=== PATIENT | male | born 1960 | race Caucasian/White ===

== ENCOUNTER 2016-09-18 14:24 | Observation (INO) ==
[2016-09-18 15:18] LABS: Basophils % 0.1 %; Eosinophils # 0.1 K/mcL (0.0-0.6); Eosinophils % 0.4 %; Hematocrit 38.6 % (37.5-50.1); Hemoglobin 13.1 g/dL (12.9-16.9); Immature Granulocytes % 0.4 % (0-4); Lymphocytes # 1.7 K/mcL (0.6-4.6); Lymphocytes % 11.8 %; Mean Corpuscular HGB Conc 33.9 g/dL (31.6-35.5); Mean Corpuscular Hemoglobin 31.5 pg (28.0-33.3); Mean Corpuscular Volume 92.8 fL (83.0-100.0); Mean Platelet Volume 8.9 fL (9.4-12.4); Monocytes % 7.1 %; Neutrophils # 11.4 K/mcL (1.6-8.9); Platelet Count 151 K/mcL (140-400); Red Blood Count 4.16 M/mcL (4.19-5.50); Red Cell Distribution Width 12.7 % (11.5-14.5); Segmented Neutrophils % 80.2 %
--- NOTE | 2016-09-18 15:31 | Emergency Department Note ---
Disposition Clinical Impression: Hypoxia, Dyspnea Pneumonia Qualifiers: Pneumonia type: due to unspecified organism Laterality: right Lung location: unspecified part of lung Qualified Code(s): J18.9 - Pneumonia, unspecified organism Disposition: Admitted As Inpatient Condition: Fair Referrals: NONE,PCP [Non-Partnered Physician] - Forms: Work/School Release, ED Satisfaction Letter Time of Disposition: 19:46 Dizziness HPI - General Chief Complaint: ED General Medical Stated Complaint: Dizzy, Out of BP meds, Aching all over Time Seen by Provider: 09/18/16 14:46 Source: patient, EMS Limitations: no limitations - History of Present Illness HPI Narrative: ]]] Mr. Mckoy is a 55-year-old male with a past medical history of hypertension and hepatitis C. He has a remote IV drug use history. Patient presents to the ED because he started feeling dizzy about 2 hours before his presentation. He says he was at the [employer] store and he started to see stars. Upon further questioning, patient states that he has pain in his back that radiates to his right shoulder. He says he has been feeling short of breath for about 2-3 days. Patient states she has been nauseated since yesterday. He has had no vomiting or diarrhea constipation or trouble urinating. He has noticed no blood in his blood urine. Patient denies any cardiac history including coronary artery disease or congestive heart failure. Timing: gradual onset Description: lightheadedness Severity: moderate Associated symptoms: Reports: shortness of breath, nausea. Denies: diaphoresis , fever, palpitations - Related Data Home Medications Medication Instructions Recorded Confirmed Albuterol Sulfate [Ventolin Hfa] 2 puff IH Q4H PRN 09/18/16 09/18/16 Cholecalciferol (D-3) [Vitamin D] 1,000 unit PO DAILY 09/18/16 09/18/16 Fexofenadine HCl 180 mg PO DAILY 09/18/16 09/18/16 Gabapentin [Neurontin] 800 mg PO QID 09/18/16 09/18/16 Lisinopril [Zestril] 10 mg PO DAILY 09/18/16 09/18/16 Ranitidine HCl [Acid Cork Insulator Helper] 150 mg PO BID 09/18/16 09/18/16 Previous Rx's Medication Instructions Recorded Ibuprofen [Motrin] 800 mg PO Q8HR PRN #40 tablet 06/04/16 Allergies Allergy/AdvReac Type Severity Reaction Status Date / Time aspirin [ASA] Allergy Rash Verified 12/29/14 00:10 All systems ED: reviewed and negative except as stated. Constitutional: Reports: as per HPI. Denies: fever Cardiovascular: Reports: chest pain. Denies: palpitations, dyspnea on exertion , edema, syncope Respiratory: Reports: dyspnea. Denies: cough, hemoptysis, sputum production Gastrointestinal: Reports: nausea. Denies: abdominal pain, vomiting, diarrhea, constipation Genitourinary: Denies: urgency, dysuria Past Medical History - Past Medical History Attestation: Yes The following information was validated with the patient. Source: patient Medical history: Reports: hypertension Surgical history: Reports: no surgical history, orthopedic, other Psychiatric history: Reports: no psych history - Social History Smoking Status: Current every day smoker Smokeless Tobacco Status: No Alcohol use: Reports: none Drug use: Reports: marijuana Physical Exam - General Limitations: no limitations General appearance: alert, in no apparent distress - Eye Eye exam: Present: normal appearance, PERRL - ENT ENT exam: normal exam (Patient has poor dentition. He is unkept.) - Neck Neck exam: Present: normal inspection - Chest Chest inspection: Present: normal inspection - Respiratory Respiratory exam: Present: normal lung sounds bilaterally. Absent: respiratory distress, wheezes, stridor - Cardiovascular Cardiovascular exam: Present: regular rate, normal rhythm. Absent: systolic murmur, diastolic murmur, rubs, gallop - Abdominal Exam Abdominal exam: Present: soft, Non-Tender - Extremities Exam Extremities exam: Present: normal inspection. Absent: pedal edema - Neurological Exam Neurological exam: Present: alert, oriented X3, normal gait. Absent: motor sensory deficit - Psychiatric Psychiatric exam: Present: normal affect (Patient appears homeless and unclean.) - Skin Skin exam: Present: warm, dry Course Course Narrative: 55-year-old male with past medical history of hypertension hepatitis C and homelessness presents to the ED with 2 hour history of feeling dizzy. Patient says she has been having back pain that radiates to his right shoulder for the past couple days. He also says he has been feeling short of breath for the past 4 days. Patient has no known coronary artery disease or congestive heart failure. Because of patient's shortness of breath and symptoms, we will order a chest pain workup. - Reevaluation(s) Reevaluation #1: Patient patient's ECG is normal. He has an elevated white blood cell count with a left shift. Chest x-ray shows some focal nodularity recommended CT scan. Reevaluation #2: CT scans show some multifocal pneumonia of his right lobe and also a splenic aneurysm. CT is recommending further imaging. Patient has a white blood cell count 14.2. Will admit to medicine for treatment of PNA. Vital Signs Temperature 98.1 F 09/18/16 14:25 Pulse Rate 95 09/18/16 14:25 Respiratory Rate 14 09/18/16 14:25 Blood Pressure 125/85 09/18/16 14:25 O2 Sat by Pulse Oximetry 93 09/18/16 14:25 Temperature 98.1 F 09/18/16 14:25 Pulse Rate 85 09/18/16 15:53 Respiratory Rate 14 09/18/16 15:53 Blood Pressure 122/83 09/18/16 15:53 O2 Sat by Pulse Oximetry 94 09/18/16 15:53 Oxygen Delivery Oxygen Delivery Room Air Dizziness - Medical Records Medical records reviewed: Yes I reviewed the patient's medical records. - Lab Data Lab results reviewed: Yes I reviewed the patient's lab results. Result diagrams: 09/18/16 15:07 09/18/16 15:09 Lab Results 09/18/16 09/18/16 09/18/16 Range/Units 15:07 15:09 15:09 WBC 14.2 H (4.3-11.1) K/mcL RBC 4.16 L (4.19-5.50) M/mcL Hgb 13.1 (12.9-16.9) g/dL Hct 38.6 (37.5-50.1) % MCV 92.8 (83.0-100.0) fL MCH 31.5 (28.0-33.3) pg MCHC 33.9 (31.6-35.5) g/dL RDW 12.7 (11.5-14.5) % Plt Count 151 (140-400) K/mcL MPV 8.9 L (9.4-12.4) fL Immature Gran % 0.4 (0-4) % Seg Neutrophils % 80.2 % Lymphocytes % 11.8 % Monocytes % 7.1 % Eosinophils % 0.4 % Basophils % 0.1 % Neutrophils # 11.4 H (1.6-8.9) K/mcL Lymphocytes # 1.7 (0.6-4.6) K/mcL Monocytes # 1.0 (0.0-1.3) K/mcL Eosinophils # 0.1 (0.0-0.6) K/mcL Basophils # 0.0 (0.0-0.2) K/mcL Sodium 137 (136-145) mEq/L Potassium 4.4 (3.5-4.5) mEq/L Chloride 102 (98-109) mEq/L Carbon Dioxide 28 (19-29) mEq/L BUN 19 (8-26) mg/dL Creatinine 0.99 (0.72-1.25) mg/dL Est GFR ( Amer) > 60 (> 60) Est GFR (Non-Af Amer) > 60 (> 60) BUN/Creatinine Ratio 19 (6-26) Glucose 113 H (70-99) mg/dL Calculated Osmolality 287 (280-300) Calcium 9.2 (8.6-10.8) mg/dL Total Bilirubin 1.2 (0.2-1.2) mg/dL AST 38 H (5-34) Units/L ALT 46 (0-55) Units/L Alkaline Phosphatase 69 (38-126) Units/L Troponin I 0.00 (0-0.03) ng/mL Serum Total Protein 7.3 (6.0-8.3) g/dL Albumin 3.6 (3.5-5.0) g/dL Globulin 3.7 H (2.4-3.5) g/dL Albumin/Globulin Ratio 1.0 L (1.1-2.2) - Radiology Data Radiology results reviewed: Yes I reviewed the patient's radiology results. Chest X-Ray 09/18/16 15:02 IMPRESSION: Possible 1.2 cm nodule right upper lung field seen only on the frontal view. Unenhanced chest CT is recommended for complete assessment. D/ / 09/18/2016 15:58:50 Yung Quintero MD / [facility] Interpreting Provider: Yung Quintero MD Chest CT 09/18/16 16:52 IMPRESSION: 1. Numerous areas of very focal consolidation within the right lung, the appearance of which is most compatible with multifocal pneumonia. However, it is necessary to follow these to resolution to ensure that there is no underlying neoplasm, especially given the nodular morphology. 2. Possible splenic artery aneurysm which is incompletely evaluated. However, given its size, follow-up is necessary with a dedicated CT angiogram of the abdomen and pelvis once the patient's acute symptoms have resolved, as this may be a clinically significant aneurysm. 3. Small hiatal hernia. 4. At least moderate emphysema noted within the lungs. 5. Benign right adrenal adenoma, for which no further follow-up is necessary. D/ / Wm Motley MD / Wm Motley MD Interpreting Provider: Wm Motley MD - EKG Data EKG attestation: Yes I reviewed and interpreted this EKG. EKG results narrative: Patient's ECG today at 3:16 PM showed normal sinus rhythm. Could not obtain a prior ECG for comparison.
[2016-09-18 16:03] LABS: Alanine Aminotransferase 46 Units/L (0-55); Albumin 3.6 g/dL (3.5-5.0); Alkaline Phosphatase 69 Units/L (38-126); Aspartate Amino Transferase 38 Units/L (5-34); BUN/Creatinine Ratio 19 (6-26); Bilirubin,Total 1.2 mg/dL (0.2-1.2); Blood Urea Nitrogen 19 mg/dL (8-26); Calcium 9.2 mg/dL (8.6-10.8); Carbon Dioxide 28 mEq/L (19-29); Chloride 102 mEq/L (98-109); Globulin 3.7 g/dL (2.4-3.5); Glucose 113 mg/dL (70-99); Osmolality,Calculated 287 (280-300); Potassium 4.4 mEq/L (3.5-4.5); Sodium 137 mEq/L (136-145); Total Protein 7.3 g/dL (6.0-8.3); eGFR For African Americans > 60 (> 60); eGFR For Non-African Americans > 60 (> 60)
[2016-09-18 16:20] LABS: Amphetamine Screen,Urine Negative ng/mL (Cutoff=1000); Barbiturate Screen,Urine Negative ng/mL (Cutoff=200); Benzodiazepines Screen,Urine Negative ng/mL (Cutoff=200); Cannabinoid Screen,Urine Negative ng/mL (Cutoff = 50); Cocaine Screen,Urine Negative ng/mL (Cutoff= 300); Opiate Screen,Urine Negative ng/mL (Cutoff=300); Phencyclidine Screen,Urine Negative ng/mL (Cutoff=25)
[2016-09-18] MEDS ORDERED: *HR* HYDROmorphone (PF) 1 MG/ML SYRINGE IVP ONE (19:00)
[2016-09-18] MEDS ORDERED: 0.9 % Sodium Chloride 1,000 ML IVC SCH (19:00)
--- NOTE | 2016-09-18 21:31 | Event Note ---
Date of Encounter: 09/18/16 Time of Encounter: 21:29 Patient seen and examined with medical records library professor. Community acquired pneumonia and will start antibiotics for that. Patient has a 30 pack your smoking history advice to rule out COPD. He has expiratory wheezing will start patients on nebulizer treatment. Outpatient follow-up of right adrenal adenoma and chest imaging to ensure resolution of pulmonary lesions. Full code. Observation admission
--- NOTE | 2016-09-18 22:10 | Internal Med History&Physical ---
Date of Encounter: 09/18/16 Time of Encounter: 22:08 Assessment and Plan (1) Pneumonia Current visit: Yes Status: Acute 55 y/o male cc of dizziness states he has had sob, productive sputum, intermittent chest pain and upper back pain for the last [address] chest showing multifocal pneumonia however underlying malignancy cannot be ruled out [id number] smoking history Previous history of IV drug about 30 years ago: Includes heroin and amphetamines , cocaine. Denies drug use recently. Urine drug screen negative. Meets one sirs criteria for leukocytosis Currently resting in bed without distress not requiring supplemental oxygen Bacterial Community-acquired pneumonia Plan: Start ceftriaxone and azithromycin Sputum culture, blood culture [facility] Patient educated on smoking cessation Likely has underlying COPD however he has not been tested for this. Will require outpatient pulmonology consultation. Regular diet Qualifiers: Pneumonia type: due to unspecified organism Laterality: right Lung location: unspecified part of lung Qualified Code(s): J18.9 - Pneumonia, unspecified organism (2) Chest pain Current visit: Yes Status: Acute atypical chest pain substernal, worsens with exertion EKG sinus rhythm Troponin 0.00 CT Chest: multifocal pneumonia Likely secondary to pneumonia Plan: Lipid panel HgA1c Qualifiers: Chest pain type: other chest pain Qualified Code(s): R07.89 - Other chest pain; R07.8 - Other chest pain (3) DVT prophylaxis Current visit: Yes Status: Acute Heparin subcutaneous (4) Hx of hepatitis C Current visit: Yes Status: Acute Patient states she has a history of hepatitis C which she required 10 years ago -At the time of diagnosis he had jaundice, He states he was rechecked and found to not have a chronic infection No evidence of jaundice, telangiectasias, abdominal stria, asciteis PLAN: Hep C panel (5) Hx of intravenous drug use in remission Current visit: Yes Status: Acute History of IV drug use 30 years ago Denies any recent drug use Urine drug screen negative (6) Hypertension Current visit: Yes Status: Acute Controlled Continue home medication Qualifiers: Hypertension type: essential hypertension Qualified Code(s): I10 - Essential (primary) hypertension (7) GERD (gastroesophageal reflux disease) Current visit: Yes Status: Acute States he has history of heartburn Did complain of chest pain this aching, intermittent but this has resolved with IV narcotics Hiatal hernia seen on CT chest We will continue his ranitidine. Qualifiers: Esophagitis presence: esophagitis presence not specified Qualified Code(s) : K21.9 - Gastro-esophageal reflux disease without esophagitis (8) Splenic artery aneurysm Current visit: Yes Status: Suspected CT chest shows evidence of splenic artery aneurysm however radiology recommends a dedicated CT scan of the abdomen for further evaluation Will need to obtain CT abdomen/ pelvis with contrast outpatient Internal Medicine - H&P: HPI Chief complaint: Dizziness Admitted From: Home Plans for Post Hospital Care: Home History of present illness: Mr. Mckoy is a 55 year old male tobacco abuse, GERD, hypertension, hep c, IVDU presents with chief complaint of dizziness which started this afternoon. Patient was walking to [employer] when he started feeling lightheaded/dizzy and saw stars. Patient denied passing out, falling, traumatic injury. He states he has been short of breath for 2-3 days with brown productive sputum, cough, chest pain and back pain. Chest pain is described as aching, intermittent, substernal, without radiation began 2 days ago while he was watching TV worsening with exertion and not relieved by any factors. States chest pain was 10 out of 10 when he was at the [employer] Currently chest pain is resolved after receiving narcotic pain medication the ER. He also states he has pain between his shoulder blades which also started few days back described as aching without radiation. He did not take any medication to improve his pain. His back pain is also resolved with narcotic pain medication. Patient is a [id number] smoking history. Denies history of lung cancer or family history of lung cancer. He reports subjective fevers and chills. Patient had one bout of vomiting last night of a meal which he ate chicken. Currently he denies nausea and vomiting. She denies any abdominal pain, palpitations, lower extremity swelling, melena, hematochezia, hematuria, dysuria. Past Med Surg Social Fam HX - Past Medical History Medical history: hypertension, other (Hep C, gastric reflux, IV drug use) Psychiatric history: no psych history - Past Surgical History Surgical History: no surgical history, orthopedic, other - Social History Smoking Status: Current every day smoker Packs per day: 0.5 Smokeless Tobacco Status: No Alcohol use: none Drug use: marijuana, IV Drug Use (In the past) - Family History Father Age: 80 Family Member Ethnicity: Non- Living Status: Still Living Hx Family Cardiac Disorders: Yes Mother Hx Family Cardiac Disorders: Yes (Hypotension) Internal Medicine - H&P: Meds Ibuprofen [Motrin] 800 mg PO Q8HR PRN #40 tablet 06/04/16 [Rx] Albuterol Sulfate [Ventolin Hfa] 2 puff IH Q4H PRN 09/18/16 [History] Cholecalciferol (D-3) [Vitamin D] 1,000 unit PO DAILY 09/18/16 [History] Fexofenadine HCl 180 mg PO DAILY 09/18/16 [History] Gabapentin [Neurontin] 800 mg PO QID 09/18/16 [History] Lisinopril [Zestril] 10 mg PO DAILY 09/18/16 [History] Ranitidine HCl [Acid Driver Education Instructor] 150 mg PO BID 09/18/16 [History] Allergies aspirin [ASA] Allergy (Verified 12/29/14 00:10) Rash All Systems PM: A 10-system review of systems was performed and is negative for pertinent findings except as documented above in the HPI. Review of systems: Constitutional: Reports subjective fevers and chills HEENT: Denies headache, vision changes, neck pain, sore throat, rhinorrhea Heart: Reports chest pain, denies palpitations Lungs: Reports shortness of breath, productive cough Abdomen: Denies abdominal pain and diarrhea. Reports nausea and vomiting Back: Reports upper back pain between shoulder blades Kidney: Denies dysuria, hematuria Extremities: Denies swelling, pain Neuro: Denies numbness, and tingling - Constitutional Vitals: Temp Pulse Resp BP Pulse Ox 98.1 F 87 18 113/55 90 09/18/16 14:25 09/18/16 18:58 09/18/16 21:22 09/18/16 21:22 09/18/16 18:58 - Other Additional findings: General: Alert and oriented to place time and situation. Without distress HEENT: Head atraumatic, normocephalic, EOMI, PERRLA, neck nontender to palpation , absent Lymphadenopathy, Moist Mucous Membranes, Heart: Regular rate and rhythm with no murmur Lungs: Bilateral coarse breath sounds with expiratory wheezing diffusely. Abdomen: Soft nontender, nondistended positive bowel sounds Extremities: Absent pedal edema, Neuro: Cranial nerves II through XII intact, sensation equal bilaterally, strength upper and lower extremity 5/5, alert oriented 3 Vascular: Pedal and radialpulses 2 out of 4 Internal Med - H&P Results - Labs CBC & Chem 7: 09/18/16 15:07 09/18/16 15:09
[2016-09-18] MEDS ORDERED: Ondansetron 4 MG/2 ML VIAL IVP PRN (22:18)
[2016-09-18] MEDS ORDERED: Naloxone 0.4 MG/ML INJ IVP PRN (22:18)
[2016-09-18] MEDS: Ipratropium/Albuterol Neb 3 ML IH SCH (23:08)
[2016-09-19] MEDS: Azithromycin 500 MG in D5% in Water 250 ML IVPB SCH ×2 (00:23→22:43)
[2016-09-19] MEDS: Ipratropium/Albuterol Neb 3 ML IH SCH ×5 (03:43→19:55)
[2016-09-19 04:48] LABS: Basophils % 0.4 %; Eosinophils # 0.2 K/mcL (0.0-0.6); Hematocrit 38.4 % (37.5-50.1); Hemoglobin 12.9 g/dL (12.9-16.9); Immature Granulocytes % 0.4 % (0-4); Lymphocytes # 1.6 K/mcL (0.6-4.6); Lymphocytes % 20.6 %; Mean Corpuscular HGB Conc 33.6 g/dL (31.6-35.5); Mean Corpuscular Hemoglobin 31.3 pg (28.0-33.3); Mean Corpuscular Volume 93.2 fL (83.0-100.0); Mean Platelet Volume 9.5 fL (9.4-12.4); Monocytes # 0.8 K/mcL (0.0-1.3); Monocytes % 10.6 %; Neutrophils # 5.2 K/mcL (1.6-8.9); Platelet Count 161 K/mcL (140-400); Red Blood Count 4.12 M/mcL (4.19-5.50); Red Cell Distribution Width 12.7 % (11.5-14.5)
[2016-09-19 04:50] LABS: BUN/Creatinine Ratio 20 (6-26); Blood Urea Nitrogen 16 mg/dL (8-26); Calcium 8.8 mg/dL (8.6-10.8); Carbon Dioxide 26 mEq/L (19-29); Chloride 107 mEq/L (98-109); Glucose 71 mg/dL (70-99); Osmolality,Calculated 288 (280-300); Potassium 3.8 mEq/L (3.5-4.5); Sodium 139 mEq/L (136-145); eGFR For African Americans > 60 (> 60); eGFR For Non-African Americans > 60 (> 60)
[2016-09-19 04:51] LABS: Chol/HDL Ratio 4.1 (0-4.9)
[2016-09-19 05:39] LABS: Hepatitis A Antibody IgM Nonreactive (Nonreactive); Hepatitis B Core IgM Nonreactive (Nonreactive); Hepatitis B Surface Antigen Nonreactive (Nonreactive)
[2016-09-19 05:40] LABS: Hepatitis C Virus Antibody Reactive (Nonreactive)
[2016-09-19] MEDS: *HR* Heparin 5,000 UNIT/ML VIAL SQ SCH ×2 (05:40→17:51)
[2016-09-19] MEDS ORDERED: traMADol 50 MG TABLET PO ONE (08:16)
--- NOTE | 2016-09-19 08:22 | Internal Med Progress Note ---
Date of Encounter: 09/19/16 Time of Encounter: 08:20 - Assessment and plan (1) Pneumonia Current Visit: Yes Status: Acute Assessment and plan: presented with sob, productive sputum for 3 days prior to admission. WBC 14K in ED. Chest CT showed multifocal pneumonia. Appears clinically improved on 2016 exam. Cont IV Rocephin, azithromycin for now. Blood, sputum cx pending. Narrow ATB as clinically improves and/or cx's finalize. Will need repeat imaging outpatient to ensure that there is no underlying neoplasm, especially given the nodular morphology Qualifiers: Pneumonia type: due to other aerobic Gram-negative bacteria Laterality: right Lung location: unspecified part of lung Qualified Code(s): J15.6 - Pneumonia due to other aerobic Gram-negative bacteria (2) Atypical chest pain Current Visit: Yes Status: Acute Assessment and plan: presented with substernal chest pain that worsens with exertion. Initial troponin negative, EKG without acute ST changes. Low suspicion for true ACS, suspect secondary to PNA. Cycle troponin, check echo. Monitor on tele. Has ASA allergy (3) Splenic artery aneurysm Current Visit: Yes Status: Suspected Assessment and plan: incidentally found; Chest CT with possible splenic artery aneurysm. CTA ABD/ pelvis for further evaluation pending (4) Hypertension Current Visit: Yes Status: Acute Assessment and plan: per hx. BP controlled. Cont home KIMBERLY. Monitor BP and titrate PRN Qualifiers: Hypertension type: essential hypertension Qualified Code(s): I10 - Essential (primary) hypertension (5) Hx of hepatitis C Current Visit: Yes Status: Acute Assessment and plan: hx IV drug abuse. 09/19/2016 acute hepatitis panel positive for Hep C. LFTs stable. Can follow-up outpatient (6) DVT prophylaxis Current Visit: Yes Status: Acute Assessment and plan: heparin - Time Spent With Patient 25 - 35 minutes - Subjective Interval history: Patient is new to me; information obtained from chart review and patient report. Seen and examined at bedside; says he feels somewhat better today. Still with SOB on exertion and slight cough. Also c/o back pain; says he thinks it is due to the bed and he is requesting pain medicine. No CP - Constitutional Vitals: Temp Pulse Resp BP Pulse Ox 98.3 F 79 19 122/60 93 09/19/16 04:03 09/19/16 04:03 09/19/16 04:03 09/19/16 04:03 09/19/16 04:03 General appearance: Present: A&O X 3, no acute distress - Head Head exam: Present: atraumatic, normocephalic - Eye Eye exam: Present: PERRL, conjuntiva pink, sclera anicteric Pupils: Present: PERRL - Neck Neck exam general surgery: Present: supple, trachea midline. Absent: lymphadenopathy - Respiratory Respiratory exam: Present: CTAB. Absent: accessory muscle use, rales, rhonchi, wheezes - Cardiovascular Cardiovascular exam: Present: RRR, +S1, +S2. Absent: diastolic murmur, gallop, rubs, systolic murmur - GI/Abdominal GI/Abdominal exam: Present: normal bowel sounds, soft, no peritoneal signs. Absent: distended, tenderness - Extremities Exam Extremities exam: Present: warm, radial pulses palpable and symetrical. Absent : calf tenderness, cyanotic, pedal edema - Neurological Exam Neurological exam: Present: CN II-XII intact, oriented X3, no focal deficits. Absent: pronater drift, facial droop, speech deficit - Skin Skin exam: Present: dry, intact Internal Medicine: Result - Labs CBC & Chem 7: 09/19/16 03:23 09/19/16 03:23 Labs: Short CBC 09/19/16 Range/Units 03:23 WBC 7.9 (4.3-11.1) K/mcL Hgb 12.9 (12.9-16.9) g/dL Hct 38.4 (37.5-50.1) % Plt Count 161 (140-400) K/mcL Neutrophils # 5.2 (1.6-8.9) K/mcL BMP 09/19/16 03:23 Sodium 139 Potassium 3.8 Chloride 107 Carbon Dioxide 26 BUN 16 Creatinine 0.82 Glucose 71 Calcium 8.8 Consult Discharge Plan - Plan Referrals: Bandar Arellano DO [Primary Care Provider] -
[2016-09-19] MEDS: Famotidine 20 MG TABLET PO SCH ×2 (08:51→19:39)
[2016-09-19] MEDS: Nicotine 21 MG PATCH.TD24 TD SCH (12:15)
[2016-09-19] MEDS: Gabapentin 400 MG CAPSULE PO SCH ×3 (13:29→19:39)
[2016-09-20] MEDS: Ipratropium/Albuterol Neb 3 ML IH SCH ×7 (04:11→23:36)
[2016-09-20] MEDS: *HR* Heparin 5,000 UNIT/ML VIAL SQ SCH ×2 (05:08→17:11)
[2016-09-20 05:52] LABS: Hematocrit 38.1 % (37.5-50.1); Hemoglobin 12.5 g/dL (12.9-16.9); Mean Corpuscular HGB Conc 32.8 g/dL (31.6-35.5); Mean Corpuscular Hemoglobin 30.7 pg (28.0-33.3); Mean Corpuscular Volume 93.6 fL (83.0-100.0); Mean Platelet Volume 9.5 fL (9.4-12.4); Platelet Count 163 K/mcL (140-400); Red Blood Count 4.07 M/mcL (4.19-5.50); Red Cell Distribution Width 12.6 % (11.5-14.5)
[2016-09-20 06:12] LABS: Alanine Aminotransferase 31 Units/L (0-55); Albumin 3.1 g/dL (3.5-5.0); Albumin/Globulin Ratio 0.8 (1.1-2.2); Alkaline Phosphatase 58 Units/L (38-126); Aspartate Amino Transferase 24 Units/L (5-34); BUN/Creatinine Ratio 15 (6-26); Bilirubin,Total 0.4 mg/dL (0.2-1.2); Blood Urea Nitrogen 12 mg/dL (8-26); Calcium 8.7 mg/dL (8.6-10.8); Carbon Dioxide 25 mEq/L (19-29); Chloride 110 mEq/L (98-109); Globulin 3.8 g/dL (2.4-3.5); Glucose 103 mg/dL (70-99); Osmolality,Calculated 292 (280-300); Potassium 4.2 mEq/L (3.5-4.5); Sodium 141 mEq/L (136-145); Total Protein 6.9 g/dL (6.0-8.3); eGFR For African Americans > 60 (> 60); eGFR For Non-African Americans > 60 (> 60)
[2016-09-20] MEDS: Gabapentin 400 MG CAPSULE PO SCH ×4 (08:43→20:26)
[2016-09-20] MEDS: Nicotine 21 MG PATCH.TD24 TD SCH (08:43)
[2016-09-20] MEDS: Famotidine 20 MG TABLET PO SCH ×2 (08:43→20:26)
[2016-09-20] MEDS: *HR* OxyCODONE/APAP 5/325 TABLET PO PRN ×2 (12:24→20:27)
--- NOTE | 2016-09-20 18:00 | Internal Med Progress Note ---
Date of Encounter: 09/20/16 Time of Encounter: 17:47 - Assessment and plan (1) Pneumonia Current Visit: Yes Status: Acute Qualifiers: Pneumonia type: due to other aerobic Gram-negative bacteria Laterality: right Lung location: unspecified part of lung Qualified Code(s): J15.6 - Pneumonia due to other aerobic Gram-negative bacteria (2) Hx of hepatitis C Current Visit: Yes Status: Acute (3) Hypertension Current Visit: Yes Status: Acute Qualifiers: Hypertension type: essential hypertension Qualified Code(s): I10 - Essential (primary) hypertension (4) GERD (gastroesophageal reflux disease) Current Visit: Yes Status: Acute Qualifiers: Esophagitis presence: esophagitis presence not specified Qualified Code(s) : K21.9 - Gastro-esophageal reflux disease without esophagitis (5) Splenic artery aneurysm Current Visit: Yes Status: Suspected (6) DVT prophylaxis Current Visit: Yes Status: Acute - Subjective Interval history: Patient is a 55-year-old admitted for multi lobar pneumonia as well as recurrent pain history of hepatitis C and IV drugs. Admitting M.D. had some concern about nodularity of the lung and a CT chest with contrast will be ordered. Otherwise he is doing fine. He is they have a tachycardia cardiac but considering he has multilobar pneumonia we can watch him. His heart rate is around 108 - Constitutional Vitals: Temp Pulse Resp BP Pulse Ox 97.3 F L 109 187 129/72 97 09/20/16 17:20 09/20/16 17:20 09/20/16 17:20 09/20/16 17:20 09/20/16 17:20 General appearance: Present: A&O X 3, no acute distress - Head Head exam: Present: atraumatic, normocephalic - Eye Eye exam: Present: PERRL, conjuntiva pink, sclera anicteric Pupils: Present: PERRL - Neck Neck exam general surgery: Present: supple, trachea midline. Absent: lymphadenopathy - Respiratory Respiratory exam: Present: CTAB. Absent: accessory muscle use, rales, rhonchi, wheezes - Cardiovascular Cardiovascular exam: Present: RRR, +S1, +S2. Absent: diastolic murmur, gallop, rubs, systolic murmur - GI/Abdominal GI/Abdominal exam: Present: normal bowel sounds, soft, no peritoneal signs. Absent: distended, tenderness - Extremities Exam Extremities exam: Present: warm, radial pulses palpable and symetrical. Absent : calf tenderness, cyanotic, pedal edema - Neurological Exam Neurological exam: Present: CN II-XII intact, oriented X3, no focal deficits. Absent: pronater drift, facial droop, speech deficit - Skin Skin exam: Present: dry, intact Internal Medicine: Result - Labs CBC & Chem 7: 09/20/16 05:00 09/20/16 05:00 Labs: Short CBC 09/20/16 Range/Units 05:00 WBC 5.3 (4.3-11.1) K/mcL Hgb 12.5 L (12.9-16.9) g/dL Hct 38.1 (37.5-50.1) % Plt Count 163 (140-400) K/mcL BMP 09/20/16 05:00 Sodium 141 Potassium 4.2 Chloride 110 H Carbon Dioxide 25 BUN 12 Creatinine 0.82 Glucose 103 H Calcium 8.7 Liver Function 09/20/16 Range/Units 05:00 Total Bilirubin 0.4 (0.2-1.2) mg/dL AST 24 (5-34) Units/L ALT 31 (0-55) Units/L Alkaline Phosphatase 58 (38-126) Units/L Albumin 3.1 L (3.5-5.0) g/dL Consult Discharge Plan - Plan Referrals: Bandar Arellano DO [Primary Care Provider] -
[2016-09-20] MEDS: Azithromycin 500 MG in D5% in Water 250 ML IVPB SCH (23:14)
[2016-09-21] MEDS: Ipratropium/Albuterol Neb 3 ML IH SCH ×3 (03:22→11:24)
[2016-09-21] MEDS: *HR* Heparin 5,000 UNIT/ML VIAL SQ SCH (05:21)
[2016-09-21] MEDS: *HR* OxyCODONE/APAP 5/325 TABLET PO PRN ×2 (05:25→12:18)
[2016-09-21 06:01] LABS: Alanine Aminotransferase 29 Units/L (0-55); Albumin 3.1 g/dL (3.5-5.0); Albumin/Globulin Ratio 0.8 (1.1-2.2); Alkaline Phosphatase 62 Units/L (38-126); Aspartate Amino Transferase 22 Units/L (5-34); BUN/Creatinine Ratio 14 (6-26); Blood Urea Nitrogen 11 mg/dL (8-26); Calcium 9.1 mg/dL (8.6-10.8); Carbon Dioxide 23 mEq/L (19-29); Chloride 113 mEq/L (98-109); Globulin 3.8 g/dL (2.4-3.5); Glucose 99 mg/dL (70-99); Osmolality,Calculated 295 (280-300); Potassium 4.2 mEq/L (3.5-4.5); Sodium 143 mEq/L (136-145); Total Protein 6.9 g/dL (6.0-8.3); eGFR For African Americans > 60 (> 60); eGFR For Non-African Americans > 60 (> 60)
[2016-09-21 06:02] LABS: Bilirubin,Total < 0.3 mg/dL (0.2-1.2)
[2016-09-21 06:03] LABS: Hematocrit 38.9 % (37.5-50.1); Hemoglobin 12.8 g/dL (12.9-16.9); Mean Corpuscular HGB Conc 32.9 g/dL (31.6-35.5); Mean Corpuscular Hemoglobin 31.2 pg (28.0-33.3); Mean Corpuscular Volume 94.9 fL (83.0-100.0); Mean Platelet Volume 9.5 fL (9.4-12.4); Platelet Count 170 K/mcL (140-400); Red Cell Distribution Width 12.9 % (11.5-14.5)
[2016-09-21 11:23] VITALS: BP 139/82
[2016-09-21] MEDS: Famotidine 20 MG TABLET PO SCH (12:13)
[2016-09-21] MEDS: Gabapentin 400 MG CAPSULE PO SCH (12:13)
[2016-09-21] MEDS: Nicotine 21 MG PATCH.TD24 TD SCH (12:13)
--- NOTE | 2016-09-21 13:21 | Discharge Summary ---
Date of Encounter: 09/21/16 Time of Encounter: 13:18 - Discharge Diagnosis (1) Pneumonia Priority: Primary Status: Acute Qualifiers: Pneumonia type: due to other aerobic Gram-negative bacteria Laterality: right Lung location: unspecified part of lung Qualified Code(s): J15.6 - Pneumonia due to other aerobic Gram-negative bacteria (2) Hx of hepatitis C Priority: Secondary Status: Acute (3) Hypertension Priority: Secondary Status: Acute Qualifiers: Hypertension type: essential hypertension Qualified Code(s): I10 - Essential (primary) hypertension (4) GERD (gastroesophageal reflux disease) Priority: Secondary Status: Acute Qualifiers: Esophagitis presence: esophagitis presence not specified Qualified Code(s) : K21.9 - Gastro-esophageal reflux disease without esophagitis (5) Splenic artery aneurysm Priority: Secondary Status: Suspected (6) DVT prophylaxis Priority: Secondary Status: Acute - Discharge Medications Prescriptions: HYDROcodone/Acet 7.5/325 mg [[place]amp[place] 7.5-325 mg] 1 tab PO TID #12 tablet levoFLOXacin [Levaquin] 750 mg PO DAILY #7 tablet Home Medications: Ibuprofen [Motrin] 800 mg PO Q8HR PRN #40 tablet 06/04/16 [Rx] Albuterol Sulfate [Ventolin Hfa] 2 puff IH Q4H PRN 09/18/16 [History] Cholecalciferol (D-3) [Vitamin D] 1,000 unit PO DAILY 09/18/16 [History] Fexofenadine HCl 180 mg PO DAILY 09/18/16 [History] Gabapentin [Neurontin] 800 mg PO QID 09/18/16 [History] Lisinopril [Zestril] 10 mg PO DAILY 09/18/16 [History] Ranitidine HCl [Acid System Support Developer] 150 mg PO BID 09/18/16 [History] HYDROcodone/Acet 7.5/325 mg [[place] 7.5-325 mg] 1 tab PO TID #12 tablet 09/21/16 [Rx] Nicotine Patch [Nicoderm] 21 mg TD DAILY 09/21/16 [Rx] levoFLOXacin [Levaquin] 750 mg PO DAILY #7 tablet 09/21/16 [Rx] Allergies/Adverse Reactions: Allergies aspirin [ASA] Allergy (Verified 12/29/14 00:10) Rash Procedures/tests Complete & Pending: Procedures Performed prior 72 hours Category Date Time Status CT chest w con [CT] Routine Cat Scan 09/20/16 18:01 Completed CTA Abdomen/Pelvis [CT angio abdomen pelvis] [CT] Cat Scan 09/19/16 08:18 Completed Routine EV echocardiogram Routine Y 09/19/16 08:38 Completed Date of admission: 09/18/16 20:17 Primary care physician: Bandar Arellano DO Discharging clinician: Hallie Iqbal Anticipated date of discharge: 09/21/16 - Patient Status Disposition: Home, Self-Care Condition: Fair Overall status at discharge: patient is progressing back to baseline - Discharge Instructions Instructions: Oxycodone/Acetaminophen (By mouth), Chest Pain (DC), How to Stop Smoking (DC), How to Stop Smoking (GEN), Cigarette Smoking and Your Health (GEN) , Chronic Hypertension (DC), Secondhand Smoke Exposure in Children (GEN), Pneumonia (DC), Cigarette Smoking and Your Health, Journeyman Painter (GEN), How to Stop Smoking, Journeyman Painter (GEN) Follow Up With: Bandar Arellano DO [Primary Care Provider] - 09/25/16 10:20 am - Diet and Activity Activity: resume usual activities as tolerated Diet: advance to your usual diet Hospital course: Mr. Mckoy is a 55-year-old admitted for multi lobar pneumonia as well as recurrent history of hepatitis C and IV drugs. Admitting M.D. had some concern about nodularity of the lung and a CT chest with contrast obtained. It showed improved pneumonia and some nonspecific nodules which are unchanged. His advice to follow with his family doctor. Otherwise he is doing fine. Initially he was very tachycardic but no better hemodynamically. - Time Spent with Patient Total time spent providing and/or coordinating discharge services: Greater than 30 minutes - Constitutional Vitals: Temp Pulse Resp BP Pulse Ox 98.1 F 93 16 139/82 96 09/21/16 11:21 09/21/16 11:21 09/21/16 11:26 09/21/16 11:21 09/21/16 12:00 General appearance: Present: A&O X 3, no acute distress - Head Head exam: Present: atraumatic, normocephalic - Eye Eye exam: Present: PERRL, conjuntiva pink, sclera anicteric Pupils: Present: PERRL - Neck Neck exam general surgery: Present: supple, trachea midline. Absent: lymphadenopathy - Respiratory Respiratory exam: Present: CTAB. Absent: accessory muscle use, rales, rhonchi, wheezes - Cardiovascular Cardiovascular exam: Present: RRR, +S1, +S2. Absent: diastolic murmur, gallop, rubs, systolic murmur - GI/Abdominal GI/Abdominal exam: Present: normal bowel sounds, soft, no peritoneal signs. Absent: distended, tenderness - Extremities Exam Extremities exam: Present: warm, radial pulses palpable and symetrical. Absent : calf tenderness, cyanotic, pedal edema - Neurological Exam Neurological exam: Present: CN II-XII intact, oriented X3, no focal deficits. Absent: pronater drift, facial droop, speech deficit - Skin Skin exam: Present: dry, intact
--- NOTE | 2016-09-21 15:15 | Electrocardiograph Report ---
[place] [id number] Test Date: 2016-09-18 Pat Name: Mikey Mckoy Department: 102 Room: 2NE23 Gender: M Bpm Developer: Ekp : 1960 Requested By: Yaa Pinto Order Number: [id number] Reading MD: Emily Sandoval Measurements Intervals [place] Rate: 86 P: 31 NV: 139 QRS: 43 QRSD: 92 T: 37 QT: 335 QTc: 378 Interpretive Statements SINUS RHYTHM Electronically Signed On 09-20-2016 22:10:10 EDT by Emily Sandoval
--- NOTE | 2016-09-23 06:41 | Event Note ---
Date of Encounter: 09/23/16 Time of Encounter: 06:[address] Grubbs notifying him bout positive 1/2 peripheral blood cultures for gram positive rods. Patient was called this morning about this result. He denies fevers, chills, N/V/D, chest pain, sob, abdomianl pain, palpitations, lehtargy. Patient told if he has any of these symptoms to ER turn to ER or call PCP office for further evaluation.
== END 2016-09-21 14:07 | disposition home or self-care (01) ==
LOC: 2NENU 14:24 → EMEROO 14:24 → 2NENU 21:42
PROVIDERS: ADMIT Internal Medicine; ATTEND Family Medicine